=== PATIENT | female | born 1995 | race Caucasian/White ===

== ENCOUNTER 2016-07-26 12:11 | Outpatient (CLI) | payer OTHER ==
[~2016-07-26] VITALS: Ht 165.1 cm; Wt 91.8 kg
[2016-07-26] MEDS ORDERED: FOLI-49 PO (12:35)
[2016-07-26] MEDS ORDERED: FER325 PO (12:35)
[2016-07-26] MEDS ORDERED: CALC600T11 PO (12:35)
[2016-07-26] MEDS ORDERED: PRENAT PO (12:35)
[2016-07-26 12:36] VITALS: BP 105/58; PULSE 75; RESP 18; Ht 165.1 cm; Wt 91.8 kg
--- NOTE | 2016-07-26 14:30 | TRIAGE ---
OB Triage Datetime Report Generated by CPN: 07/26/2016 14:29 Datetime: 07/26/2016 12:48 Heart Rate Comments: MONITORS OFF POST REACTIVE NST. Datetime: 07/26/2016 12:31 Assessment Type: Triage EGA: 33.0 Maternal Assessment Level of Consciousness: Fully Conscious DTR's/Clonus: DTRs 2+; No Clonus Headache: Denies Blurred Vision: No Respiratory Effort: Unlabored; Regular Rhythm; Equal Expansion Breath Sounds, Left: Clear and Equal Breath Sounds, Right: Clear and Equal Nausea/Vomiting: Denies RUQ Epigastric Pain: Denies Lower Extremities Edema: None Degree: None Upper Extremities Edema: None Degree: None Facial Edema: None Fall Risk Assessment History of Falling: (0) No Secondary Diagnosis: (0) No Ambulatory Aid: (0) Bedrest/Nurse Assist IV Therapy: (0) No Gait: (0) Normal/Bedrest/Immobile Mental Status: (0) Oriented to Own Ability Fall Score: 0 Fall Risk Score Definition: No Risk: No action required Datetime: 07/26/2016 12:28 Time of Arrival: 07/26/2016 12:12 Arrived By: Ambulatory Arrived From: Office Chief Complaint: PT SENT IN WITH ORDERS FOR NST/EMMY FOR DFM AND PHOGHAM, PT DENIES DFM. Movement: Present Contractions: Denies/Absent Rupture of Membranes: Denies Vaginal Bleeding: None Vaginal Discharge: Denies Recent Sexual Intercouse: Denies Abdominal Trauma: Not Applicable Patient Complaints: None Time Provider Notified: 07/26/2016 12:15 Provider Notified: TERRELL Initial Plan: NST/RHOGHAM
== END 2016-07-26 14:51 | disposition home or self-care (01) ==
LOC: OBT 12:11 → L-D 12:12 → OBT 14:51
PROVIDERS: ATTEND Obstetrics & Gynecology
DX: O36.8130 Decreased fetal movements, third trimester, not applicable or unspecified (principal); Z3A.33 33 weeks gestation of pregnancy
CPT/HCPCS: 36415; 59025; 86850; 86885; 86900; 86901; 96372; J2790; Z7500; G0463

== ENCOUNTER 2016-09-16 05:25 | Inpatient (IN) | payer OTHER ==
[~2016-09-16] VITALS: Ht 165.1 cm; Wt 98.2 kg
[~2016-09-16 05:25] MED LIST: CALC600T11 PO; FER325 PO; FOLI-49 PO; PRENAT PO
[2016-09-16 05:48] VITALS: BP 141/79; PULSE 77; RESP 18
[2016-09-16] MEDS ORDERED: LIDOCAINE 1% (MPF) 30 ML INJ ONE (05:57)
[2016-09-16] MEDS ORDERED: AMPICILLIN 2 GM/NS (PMX) 100 ML ONE (05:57)
--- NOTE | 2016-09-16 05:57 | TRIAGE ---
OB Triage Datetime Report Generated by CPN: 09/16/2016 05:57 Datetime: 09/16/2016 05:39 Time of Arrival: 09/16/2016 05:22 EGA: 40.3 Arrived By: Wheelchair Arrived From: Home Chief Complaint: w/ c/o ucs. Denies hx problems this Movement: Present Contractions: Regular Time Contractions Began: 09/15/2016 23:30 Contractions: q3 Rupture of Membranes: Denies Vaginal Bleeding: Normal Show Vaginal Discharge: Denies Recent Sexual Intercouse: Denies Abdominal Trauma: Not Applicable Patient Complaints: Contractions Time Provider Notified: 09/16/2016 05:35 Provider Notified: Dr Curry Membrane Status: Intact Datetime: 09/16/2016 05:37 Vaginal Exam Dilatation (cms): 5.0 Datetime: 09/16/2016 05:32 Stage of : OB Triage Maternal Assessment Level of Consciousness: Fully Conscious Headache: Denies Blurred Vision: No Nausea/Vomiting: Denies RUQ Epigastric Pain: Denies Facial Edema: None Labor Evaluation Monitor Mode: External Heart Rate FHR Baseline Rate: 135 Monitor Mode: External US Vaginal Exam Dilatation (cms): 5.0 Effacement (%): 90 Station: -1 Exam By: E JENIFFER Membrane Status: Intact Amniotic Fluid Amount: None Vaginal Bleeding: Normal Show Cervix, Consistency: Soft Cervix, Position: Midposition Presentation 'A': Cephalic Datetime: 07/26/2016 12:31 EGA: 33.0 Fall Risk Assessment Fall Score: 0 Fall Risk Score Definition: No Risk: No action required
[2016-09-16] MEDS ORDERED: IBUPROFEN 600 MG TAB PO PRN ×3 (06:00→08:00)
[2016-09-16] MEDS ORDERED: METHYLERGONOVINE 0.2 MG INJ IM PRN ×3 (06:00→08:00)
[2016-09-16] MEDS ORDERED: LIDOCAINE 1% (MPF) 30 ML INJ INJ PRN (06:00)
[2016-09-16] MEDS ORDERED: AMPICILLIN 2 GM/NS (PMX) 100 ML IV ONE (06:00)
[2016-09-16] MEDS ORDERED: BUTORPHANOL 2 MG INJ IV PRN (06:00)
[2016-09-16] MEDS ORDERED: MISOPROSTOL 200 MCG TAB PR PRN ×3 (06:00→08:00)
[2016-09-16] MEDS ORDERED: CARBOPROST 250 MCG INJ IM PRN ×3 (06:00→08:00)
[2016-09-16] MEDS ORDERED: OXYTOCIN 30 UNITS/LR 500 ML IV PRN ×3 (06:00→08:00)
[2016-09-16] MEDS ORDERED: LACTATED RINGER'S 1,000 ML IV PRN (06:00)
[2016-09-16] MEDS ORDERED: OXYTOCIN 30 UNITS/LR 500 ML IV SCH ×4 (06:00→08:00)
[2016-09-16] MEDS ORDERED: BUTORPHANOL 2 MG INJ ONE (06:08)
[2016-09-16] MEDS: LACTATED RINGER'S 1,000 ML IV SCH ×2 (06:19→07:32)
[2016-09-16 06:26] LABS: ADD SCAN DIFF NO
[2016-09-16 06:34] LABS: BASOPHIL # 0.1 10^3/ul (0.0-0.1); BASOPHILS % 0.4 % (0.0-2.0); EOSINOPHILS # 0.2 10^3/ul (0.0-0.5); EOSINOPHILS % 1.8 % (0.0-7.0); HEMATOCRIT 32.2 % (37.0-47.0); HEMOGLOBIN 10.2 g/dl (12.0-16.0); LYMPHOCYTES # 1.4 10^3/ul (0.8-2.9); LYMPHOCYTES % 12.1 % (15.0-51.0); MEAN CORPUSCULAR HGB CONC 31.7 g/dl (32.0-37.0); MEAN CORPUSCULAR VOLUME 72.7 fl (82.0-101.0); MEAN PLATELET VOLUME 10.2 fl (7.4-10.4); MONOCYTE # 0.9 10^3/ul (0.3-0.9); MONOCYTES % 7.6 % (0.0-11.0); NEUTROPHILS % 77.5 % (39.0-77.0); PLATELET COUNT 250 10^3/UL (140-415); RED BLOOD COUNT 4.43 10^6/ul (4.20-5.40); RED CELL DISTRIBUTION WIDTH 15.1 % (11.5-14.5); WHITE BLOOD COUNT 11.6 10^3/ul (4.8-10.8)
[2016-09-16 06:42] LABS: INR 0.91; PROTIME 12.3 Sec (12.2-14.2)
[2016-09-16 06:43] LABS: PARTIAL THROMBOPLASTIN TIME 30.6 Sec (25.0-35.0)
--- NOTE | 2016-09-16 07:02 | HP ---
Date/Time of Note Date/Time of Note DATE: 09/16/16 TIME: 07:01 OB - History Hx of Present Chief Complaint: active labor Care: Good Care Past Family/Social History * Past Medical, Surgical, Family and Obstetric Histories reviewed from chart. OB Admission Exam Vital Signs Vital Signs Vital Signs Date Time Temp Pulse Resp B/P Pulse Ox O2 Delivery O2 Flow Rate FiO2 09/16/16 05:48 98.5 77 18 141/79 Room Air Physical Exam HEENT: WNL Heart: Rhythm Normal Abdomen: WNL Cervical Dilatation: 5cm Accelerations: Accelerations Present Decelerations: No Decelerations Varibility: Moderate Contractions on Admission: < 5 Minutes Apart Last 72 hours Lab Results CBC & BMP 09/16/16 06:00 OB Assessment/Plan Reason for admission: active labor Plan: Expectant Management FRANCIS PETIT Sep 16, 2016 07:02
[2016-09-16] MEDS ORDERED: FENTAnyl 2MCG/ML-ROPIV 0.2% 0 ML ONE (07:24)
--- NOTE | 2016-09-16 07:59 | LDN ---
Date/Time of Note Date/Time of Note DATE: 09/16/16 TIME: 07:55 Delivery Summary Placenta Delivered: Spontaneously Meconium: none Perineal laceration: 1 Perineal laceration repair: repair was done with 3-0 chromic catgut Anesthesia type: Local Estimated blood loss: 250 Sponge & Needle done & correct: Yes All needle counts correct: Yes Any foreign bodies felt in the: No Problems: Infant Delivery Information Sex Sex: male Apgars 1 Minute: 9 5 Minute: 9 Suctioning Nose & mouth suctioned at tila: Yes Delee suction performed: No Umbilical Cord Umbilical cord with: 3 Vessels Cord presentations: no nuchal cord Nuchal cord present X: 1 Cord Blood was obtained: Yes Mother & Baby Disposition Disposition Mom & Baby to Maternity; Good: Yes LEATHA GABRIEL MD Sep 16, 2016 07:59
[2016-09-16] MEDS ORDERED: LANOLIN 7 GM TUBE TOP PRN ×2 (08:00→11:00)
[2016-09-16] MEDS ORDERED: LACTATED RINGER'S 1,000 ML IV* SCH (08:00)
[2016-09-16] MEDS ORDERED: BENZOCAINE 20% 56 ML SPRAY TOP PRN ×2 (08:00→11:00)
[2016-09-16] MEDS ORDERED: ACETAMINOPHEN 500 MG TAB PO PRN ×2 (08:00)
[2016-09-16] MEDS ORDERED: SENNA/DOCUSATE NA (8.6MG/50MG) TAB PO PRN (08:00)
[2016-09-16] MEDS ORDERED: OXYCODONE/ASPIRIN (4.88/325) TAB PO PRN ×4 (08:00→11:00)
[2016-09-16] MEDS ORDERED: DIBUCAINE 1% 30 GM OINT PR PRN ×2 (08:00→11:00)
[2016-09-16] MEDS ORDERED: WITCH HAZEL/GLYCERIN PAD PR PRN ×2 (08:00→11:00)
[2016-09-16] MEDS ORDERED: MULTIVIT/MIN/FOLATE/IRON/PREN TAB PO SCH (09:00)
[2016-09-16] MEDS ORDERED: FERROUS SULFATE (EC) 325 MG TAB PO SCH (09:00)
[2016-09-16] MEDS ORDERED: FOLIC ACID 1 MG TAB PO SCH (09:00)
[2016-09-16] MEDS ORDERED: AMPICILLIN 1 GM/NS (PMX) 50 ML IV SCH (10:00)
[2016-09-16 10:55] VITALS: BP 127/73; PULSE 62; RESP 19
[2016-09-16] MEDS ORDERED: ONDANSETRON 4 MG INJ IV PRN (11:00)
[2016-09-16] MEDS ORDERED: ACETAMINOPHEN/CODEINE #3 TAB PO PRN ×2 (11:00)
[2016-09-16] MEDS ORDERED: ACETAMINOPHEN 325 MG TAB PO PRN (11:00)
[2016-09-16] MEDS: OXYTOCIN 30 UNITS/LR 500 ML IV SCH ×2 (12:37→14:37)
[2016-09-16] MEDS: IBUPROFEN 600 MG TAB PO SCH ×3 (12:37→23:22)
[2016-09-16 16:00] VITALS: BP 120/67; PULSE 73; RESP 19
[2016-09-16 20:05] VITALS: BP 109/62; PULSE 87; RESP 19
[2016-09-16] MEDS: SENNA/DOCUSATE NA (8.6MG/50MG) TAB PO SCH (21:38)
[2016-09-17] MEDS: GUAIFENESIN 20 MG/ML 5ML CUP PO PRN ×2 (00:59→19:46)
[2016-09-17 03:30] VITALS: BP 105/55; PULSE 69; RESP 18
[2016-09-17] MEDS: IBUPROFEN 600 MG TAB PO SCH ×4 (05:47→23:48)
[2016-09-17 07:16] LABS: ADD SCAN DIFF NO
[2016-09-17 07:33] LABS: BASOPHILS % 0.5 % (0.0-2.0); EOSINOPHILS # 0.3 10^3/ul (0.0-0.5); EOSINOPHILS % 3.1 % (0.0-7.0); HEMATOCRIT 26.6 % (37.0-47.0); HEMOGLOBIN 8.4 g/dl (12.0-16.0); LYMPHOCYTES # 1.8 10^3/ul (0.8-2.9); MEAN CORPUSCULAR HEMOGLOBIN 23.5 pg (29.0-33.0); MEAN CORPUSCULAR HGB CONC 31.6 g/dl (32.0-37.0); MEAN CORPUSCULAR VOLUME 74.5 fl (82.0-101.0); MEAN PLATELET VOLUME 10.2 fl (7.4-10.4); MONOCYTE # 0.6 10^3/ul (0.3-0.9); MONOCYTES % 6.6 % (0.0-11.0); NEUTROPHIL # 6.1 10^3/ul (1.6-7.5); PLATELET COUNT 216 10^3/UL (140-415); RED BLOOD COUNT 3.57 10^6/ul (4.20-5.40); RED CELL DISTRIBUTION WIDTH 15.5 % (11.5-14.5); WHITE BLOOD COUNT 8.8 10^3/ul (4.8-10.8)
[2016-09-17 08:30] VITALS: BP 106/61; PULSE 64; RESP 19
[2016-09-17] MEDS: SENNA/DOCUSATE NA (8.6MG/50MG) TAB PO SCH ×2 (10:28→21:21)
--- NOTE | 2016-09-17 11:54 | PN ---
Date/Time of Note Date/Time of Note DATE: 09/17/16 TIME: 11:53 OB Subjective Subjective Subjective day 1 Afebrile, vital signs are stable, abdomen is uterus firm, lochia normal, extremities normal. Laboratory Tests Test 09/17/16 06:44 Basophils # 0.010^3/ul Basophils % 0.5% Eosinophils # 0.310^3/ul Eosinophils % 3.1% Hematocrit 26.6% Hemoglobin 8.4g/dl Lymphocytes # 1.810^3/ul Lymphocytes % 20.0% Mean Corpuscular Hemoglobin 23.5pg Mean Corpuscular Hemoglobin Concent 31.6g/dl Mean Corpuscular Volume 74.5fl Mean Platelet Volume 10.2fl Monocytes # 0.610^3/ul Monocytes % 6.6% Neutrophils # 6.110^3/ul Neutrophils % 69.0% Nucleated Red Blood Cells # 0.010^3/ul Nucleated Red Blood Cells % 0.0/100WBC Platelet Count 43816^3/UL Red Blood Count 3.5710^6/ul Red Cell Distribution Width 15.5% White Blood Count 8.810^3/ul Current Medications Medications (Trade) Dose Ordered Sig/Mainor Route PRN Reason Start Time Stop Time Status Last Admin Dose Admin Lactated Ringer's 1,000 ml @ 125 mls/hr Q8H IV 09/16/16 05:49 09/16/16 08:06 DC 09/16/16 07:32 Ampicillin 100 ml @ 100 mls/hr ONCE ONCE IV 09/16/16 06:00 09/16/16 06:59 DC Ampicillin (Ampicillin 1 Gm/ NS (Pmx)) 50 ml @ 100 mls/hr Q4H IV 09/16/16 10:00 09/16/16 10:00 DC Butorphanol Tartrate (Stadol) 2 mg Q2H PRN IV PAIN 09/16/16 06:00 09/16/16 08:06 DC 09/16/16 06:19 Lidocaine 30 ml 30 ml ONCE PRN INJ EPISIOTOMY/TEARING 09/16/16 06:00 09/16/16 08:06 DC Oxytocin/Lactated Ringer's 500 ml @ 125 mls/hr ONCE -MAY REPEAT X1 IV 09/16/16 06:00 09/16/16 08:06 DC 09/16/16 07:38 Oxytocin/Lactated Ringer's 500 ml @ 125 mls/hr ONCE IV 09/16/16 06:00 09/16/16 08:07 DC 09/16/16 07:54 Ibuprofen 600 mg 600 mg ONCE PRN PO Mild Pain (Pain Score 1-3) 09/16/16 06:00 09/16/16 08:07 DC 09/16/16 07:55 Lactated Ringer's 1,000 ml @ 2,000 mls/hr Q30M PRN IV PRE-EPIDURAL BOLUS 09/16/16 06:00 09/16/16 08:07 DC Oxytocin/Lactated Ringer's 500 ml @ 0 mls/hr ONCE PRN IV For Hemorrhage Management 09/16/16 06:00 09/16/16 08:07 DC Methylergonovine Maleate (Methergine) 0.2 mg ONCE PRN IM VAGINAL BLEEDING 09/16/16 06:00 09/16/16 08:07 DC Carboprost Tromethamine (Hemabate) 250 mcg ONCE PRN IM VAGINAL BLEEDING 09/16/16 06:00 09/16/16 08:07 DC Misoprostol 1000 mcg 1,000 mcg ONCE PRN NE VAGINAL BLEEDING 09/16/16 06:00 09/16/16 08:07 DC Ampicillin (Ampicillin 2 Gm/ NS (Pmx)) 100 ml @ ud STK-MED ONCE .ROUTE 09/16/16 05:57 09/16/16 05:58 DC Lidocaine (Xylocaine 1% (Mpf)) 30 ml STK-MED ONCE .ROUTE 09/16/16 05:57 09/16/16 05:58 DC Butorphanol Tartrate 2 mg 2 mg STK-MED ONCE .ROUTE 09/16/16 06:08 09/16/16 06:09 DC Fentanyl/ Ropivacaine 0 ml @ ud STK-MED ONCE .ROUTE 09/16/16 07:24 09/16/16 07:25 DC Oxycodone/Aspirin (Percodan) 1 tab Q3H PRN PO PAIN LEVEL 1-5 09/16/16 08:00 09/16/16 10:40 DC Oxycodone/Aspirin (Percodan) 2 tab Q3H PRN PO PAIN LEVEL 6-10 09/16/16 08:00 09/16/16 10:40 DC Senna/Docusate Sodium (Senokot-S) 1 tab BID PRN PO CONSTIPATION 09/16/16 08:00 09/16/16 10:40 DC Witch Nica/ Glycerin (Tucks Pads) 1 pad BEDSIDE MEDICATION PRN NE HEMORRHOID/EPISIOTMY PAIN 09/16/16 08:00 09/16/16 10:40 DC Benzocaine (Dermoplast Norman) 1 spray BEDSIDE MEDICATION PRN TOP HEMORRHOID/EPISIOTMY PAIN 09/16/16 08:00 09/16/16 10:40 DC Dibucaine (Nupercainal) 1 applic BEDSIDE MEDICATION PRN NE HEMORRHOID/EPISIOTMY PAIN 09/16/16 08:00 09/16/16 10:40 DC Lanolin ([id number]) 1 applic BEDSIDE MEDICATION PRN TOP BEDSIDE FOR TYRONE TO NIPPLES 09/16/16 08:00 09/16/16 10:40 DC Diphtheria/ Tetanus/Acell Pertussis 0.5 ml 0.5 ml ONCE ONCE IM* 09/18/16 09:00 09/18/16 09:00 DC Oxytocin/Lactated Ringer's 500 ml @ 0 mls/hr ONCE PRN IV For Hemorrhage Management 09/16/16 08:00 09/16/16 10:40 DC Methylergonovine Maleate (Methergine) 0.2 mg ONCE PRN IM VAGINAL BLEEDING 09/16/16 08:00 09/16/16 10:40 DC Carboprost Tromethamine (Hemabate) 250 mcg ONCE PRN IM VAGINAL BLEEDING 09/16/16 08:00 09/16/16 10:40 DC Misoprostol 1000 mcg 1,000 mcg ONCE PRN NE VAGINAL BLEEDING 09/16/16 08:00 09/16/16 08:13 DC Oxytocin/Lactated Ringer's 500 ml @ 125 mls/hr Q4H IV 09/16/16 08:00 09/16/16 10:40 DC Ibuprofen (Motrin) 600 mg Q6H PRN PO PAIN 09/16/16 08:00 09/16/16 10:40 DC Acetaminophen (Tylenol Tab) 500 mg Q6H PRN PO PAIN AND OR ELEVATED TEMP 09/16/16 08:00 09/16/16 10:40 DC Ferrous Sulfate (Ferrous Sulfate (Ec)) 325 mg DAILY PO 09/16/16 09:00 09/16/16 10:40 DC Prenat Multivit/ [place]/Iron/Folic Ac ( S) 1 tab DAILY PO 09/16/16 09:00 09/16/16 10:40 DC Folic Acid 1 mg 1 mg DAILY PO 09/16/16 09:00 09/16/16 10:40 DC Lactated Ringer's 1,000 ml @ 125 mls/hr Q8H IV* 09/16/16 08:00 09/16/16 10:40 DC Oxytocin/Lactated Ringer's 500 ml @ 0 mls/hr ONCE PRN IV For Hemorrhage Management 09/16/16 08:00 09/16/16 10:40 DC Methylergonovine Maleate (Methergine) 0.2 mg ONCE PRN IM VAGINAL BLEEDING 09/16/16 08:00 09/16/16 10:40 DC Carboprost Tromethamine (Hemabate) 250 mcg ONCE PRN IM VAGINAL BLEEDING 09/16/16 08:00 09/16/16 10:41 DC Misoprostol 1000 mcg 1,000 mcg ONCE PRN NE VAGINAL BLEEDING 09/16/16 08:00 09/16/16 10:41 DC Oxytocin/Lactated Ringer's 500 ml @ 125 mls/hr Q4H IV 09/16/16 08:00 09/16/16 10:41 DC Ibuprofen (Motrin) 600 mg Q6H PRN PO PAIN 09/16/16 08:00 09/16/16 08:12 DC Acetaminophen 500 mg 500 mg Q6H PRN PO PAIN AND OR ELEVATED TEMP 09/16/16 08:00 09/16/16 10:41 DC Oxytocin/Lactated Ringer's 500 ml @ 125 mls/hr Q4H IV 09/16/16 10:37 09/16/16 18:36 DC 09/16/16 12:37 Ibuprofen (Motrin) 600 mg Q6 PO 09/16/16 12:00 09/17/16 05:47 Acetaminophen (Tylenol Tab) 650 mg Q4H PRN PO PAIN LEVEL 1-5 09/16/16 11:00 Acetaminophen/ Codeine Phosphate (Tylenol No.3) 1 tab Q4H PRN PO PAIN LEVEL 1-5 09/16/16 11:00 Acetaminophen/ Codeine Phosphate (Tylenol No.3) 2 tab Q4H PRN PO PAIN LEVEL 6-10 09/16/16 11:00 Oxycodone/Aspirin (Percodan) 1 tab Q3H PRN PO PAIN LEVEL 1-5 09/16/16 11:00 Oxycodone/Aspirin (Percodan) 2 tab Q3H PRN PO PAIN LEVEL 6-10 09/16/16 11:00 Ondansetron HCl (Zofran Inj) 4 mg Q6H PRN IV NAUSEA AND/OR VOMITING 09/16/16 11:00 Senna/Docusate Sodium (Senokot-S) 1 tab BID PO 09/16/16 21:00 09/17/16 10:28 Witch Nica/ Glycerin (Tucks Pads) 1 pad BEDSIDE MEDICATION PRN NE HEMORRHOID/EPISIOTMY PAIN 09/16/16 11:00 09/16/16 12:35 Benzocaine (Dermoplast Norman) 1 spray BEDSIDE MEDICATION PRN TOP HEMORRHOID/EPISIOTMY PAIN 09/16/16 11:00 09/16/16 12:35 Dibucaine (Nupercainal) 1 applic BEDSIDE MEDICATION PRN NE HEMORRHOID/EPISIOTMY PAIN 09/16/16 11:00 Lanolin ([id number]) 1 applic BEDSIDE MEDICATION PRN TOP BEDSIDE FOR TYRONE TO NIPPLES 09/16/16 11:00 09/16/16 12:35 Measles/Mumps/ Rubella Vaccine Live (Mmr Ii Vaccine) 0.5 ml ONCE ONCE SC* 09/18/16 09:00 09/18/16 09:01 Guaifenesin (Robitussin Liquid Cup) 200 mg Q4H PRN PO COUGH 09/16/16 23:30 09/17/16 00:59 DARIUSZ TEJADA MD Sep 17, 2016 11:54
[2016-09-17 16:34] VITALS: BP 115/62; PULSE 80; RESP 19
[2016-09-17 19:45] VITALS: BP 108/54; PULSE 75; RESP 18
[2016-09-18 03:40] VITALS: BP 125/68; PULSE 77; RESP 19
[2016-09-18] MEDS: IBUPROFEN 600 MG TAB PO SCH ×2 (05:37→12:14)
[2016-09-18 08:00] VITALS: BP 114/58; PULSE 73; RESP 20
[2016-09-18] MEDS: SENNA/DOCUSATE NA (8.6MG/50MG) TAB PO SCH (08:53)
[2016-09-18] MEDS: GUAIFENESIN 20 MG/ML 5ML CUP PO PRN (08:53)
[2016-09-18] MEDS ORDERED: MEASLES,MUMPS,RUBELLA VACCINE INJ SC* ONE (09:00)
[2016-09-18] MEDS ORDERED: DIPHTH/TET/ACEL PERTUSS (ADULT) 0.5 ML VIAL IM* ONE (09:00)
--- NOTE | 2016-09-18 13:27 | PD.PPDC ---
ADMINISTRATIVE OFFICE CLERK Discharge Instruction Condition Patient Condition: Good Diet Diet: Resume Regular Diet Activity/Restrictions Activity: Normal Activity May Shower Restrictions: No Exercising Follow-up Follow-up with Physician: 2, Week/Weeks Return to clinic for ADJUSTER [employer]TA[employer] Instructions: Fever greater than 101 Worsening abdominal pain More than 2 pads per hour DARIUSZ TEJADA MD Sep 18, 2016 13:26
--- NOTE | 2016-09-18 13:29 | DS ---
Date/Time of Note Date/Time of Note DATE: 09/18/16 TIME: 13:27 Obstetrical Discharge Record Final Diagnosis Final Diagnosis: Term delivered Vaginal Delivery Obstetrical Delivery: Spontaneous Condition on Discharge Physical Assessment Last Vitals: day 2, abdomen soft uterus firm lochia normal extremity normal discharged home with follow-up instructions to be seen at the clinic in 2 weeks Voiding: Yes Bowel Movement: Yes Breast: Soft, non-tender, Filling Fundus: Firm Calf Tenderness: No Patient Condition: Good DARIUSZ TEJADA MD Sep 18, 2016 13:28
== END 2016-09-18 18:22 | disposition home or self-care (01) | DRG 775 ==
LOC: L-D 05:25 → OBT 05:25 → L-D 05:39 → PP1 09:54
PROVIDERS: ADMIT Obstetrics & Gynecology; ATTEND Obstetrics & Gynecology
PROC: 10E0XZZ Delivery of Products of Conception, External Approach (ICD-10-PCS; principal; 2016-09-16)
DX: O80 Encounter for full-term uncomplicated delivery (principal); Z37.0 Single live birth; Z3A.40 40 weeks gestation of pregnancy
CPT/HCPCS: 85025; 85610; 85730; 86592; 86850; 86885; 86900; 86901; 87340; G0463; J0290; J2590; J2790; J3010; J7120